=== PATIENT | male | born 1975 | race Caucasian/White ===

== ENCOUNTER 2016-12-07 18:45 | Outpatient (RCR) | payer OTHER ==
--- NOTE | 2016-12-06 16:51 | Diagnostic Imaging Report ---
INDICATION: Nephrolithiasis. EXAMINATION: KUB at 4:22 PM. FINDINGS: The bowel gas pattern is normal. There are no pathologic masses or calcifications seen. IMPRESSION: Negative abdomen. Dictated by: Dictated on workstation # [id number]
[~2016-12-07 18:45] MED LIST: ACHD5005 PO; CIPR250S2 PO; CPR500T PO; OXYC-12 PO; PHEN200T27 PO
[2016-12-11 22:35] LABS: STONE RISK AMMONIUM 34 mEq/24hr (14-62); STONE RISK CA OXALATE 1.51 (< 2.00); STONE RISK CALCIUM 233 mg/day (< 250); STONE RISK CITRATE 467 mg/day (> 320); STONE RISK CREATININE 2052 mg/day (800-2000); STONE RISK MAGNESIUM 160 mg/day (> 60); STONE RISK OXALATE 41 mg/day (< 45); STONE RISK PATIENT CONDITION High urinary sodium; STONE RISK PH 6.4 (5.5-7.0); STONE RISK PHOSPHOROUS 1346 mg/day (< 1100); STONE RISK POTASSIUM 76 mEq/24hr (19-135); STONE RISK SODIUM 235 mEq/24hr (< 200); STONE RISK STRUVITE 2.69 (< 75.00); STONE RISK SULFITE 21 mmol/day (< 30); STONE RISK TOTAL VOLUME 2.14 L/day (> 2.00); STONE RISK URIC ACID 681 mg/day (< 700); STONE RISK URIC ACID SAT 0.59 (< 2.00)
== END 2016-12-08 22:30 | disposition home or self-care (01) ==
LOC: RAD 18:45 → EDSTATUS 12-08 22:29 → RAD 12-08 22:30
PROVIDERS: ATTEND Urology
DX: N20.9 Urinary calculus, unspecified (principal)
CPT/HCPCS: 36415; 74000; 82140; 82340; 82507; 82570; 83735; 83945; 83986; 84105; 84133; 84300; 84392; 84560

== ENCOUNTER 2018-12-17 13:46 | Outpatient (CLI) | payer OTHER ==
[~2018-12-17] VITALS: Ht 177.8 cm; Wt 74.8 kg
[~2018-12-17 13:46] MED LIST changes: -HYDR-3870 PO; -PHEN-640 PO; -SULF1TAB35 PO; -TAMS0.4C98 PO; -TRIA1CAP4 PO
[2018-12-17] MEDS ORDERED: TRIA1CAP4 PO (14:15)
[2018-12-18] MEDS ORDERED: SULF1TAB35 PO (11:18)
[2018-12-18] MEDS ORDERED: PHEN-640 PO (11:18)
[2018-12-18] MEDS ORDERED: HYDR-3870 PO (11:18)
[2018-12-18] MEDS ORDERED: TAMS0.4C98 PO (11:18)
== END 2018-12-17 14:19 | disposition home or self-care (01) ==
LOC: PREOP 13:46
PROVIDERS: ATTEND Urology
DX: Z01.818 Encounter for other preprocedural examination (principal)

== ENCOUNTER → 2018-12-17 | Outpatient (CLI) | payer OTHER ==
[~2018-12-17] MED LIST changes: +HYDR-3870 PO; +PHEN-640 PO; +SULF1TAB35 PO; +TAMS0.4C98 PO; +TRIA1CAP4 PO
--- NOTE | 2018-12-17 10:02 | Diagnostic Imaging Report ---
PROCEDURE: CT urinary tract, rule out kidney stone. TECHNIQUE: Multiple contiguous axial images were obtained through the abdomen and pelvis without the use of intravenous contrast. Auto Exposure Controls were utilized during the CT exam to meet ALARA standards for radiation dose reduction. INDICATION: Left flank pain. COMPARISON: CT abdomen and pelvis of 02/20/2014 FINDINGS: Evaluation of the abdominal viscera is mildly limited without contrast. Lower chest: The lung bases are clear. No pericardial or pleural effusion. Peritoneum: No free intraperitoneal air or fluid. Liver and biliary system: Unenhanced liver is normal. The gallbladder is normal. No biliary duct dilation. Spleen and Pancreas: Spleen is normal. Unenhanced pancreas is grossly normal. Adrenals: Normal. tract: Multiple bilateral nonobstructing renal stones range in size from 2-4 mm. A 4 mm distal left ureteral stone at the UVJ results in mild left hydronephrosis and hydroureter. Urinary bladder is normally filled without wall thickening. Prostate is normal in appearance. GI tract: Stomach is decompressed. No bowel obstruction. No pericolonic inflammatory changes. Appendix is not visualized and could be surgically absent. If the appendix is present, there are no features of acute appendicitis. Vasculature and Lymph nodes: Normal caliber aorta. No abdominal or pelvic lymphadenopathy. Musculoskeletal: No concerning osseous lesion. Transitional vertebrae at the lumbosacral junction. IMPRESSION: 1. A 4 mm stone at the left UVJ results in mild left hydronephrosis and hydroureter. 2. Additional bilateral nonobstructing renal stones range in size from 2-4 mm. Dictated by: Dictated on workstation # [id number]
== END ==
LOC: RAD 09:00
PROVIDERS: ATTEND Urology
DX: N13.2 Hydronephrosis with renal and ureteral calculous obstruction (principal)
CPT/HCPCS: 74176

== ENCOUNTER 2018-12-18 07:21 | Day surgery (SDC) | payer OTHER ==
[~2018-12-18] VITALS: Ht 177.8 cm; Wt 69.9 kg
--- NOTE | 2018-12-18 07:12 | Progress Note-Pre Operative ---
Pre-Operative Progress Note H&P Reviewed The H&P was reviewed, patient examined and no changes noted. Date Seen by Provider: Dec 18, 2018 Time Seen by Provider: 07:11 Date H&P Reviewed: Dec 18, 2018 Time H&P Reviewed: 07:11 Pre-Operative Diagnosis: LT DISTAL URETERAL STONE HAILEY FERRARA MD Dec 18, 2018 07:12
[~2018-12-18 07:21] MED LIST changes: +FAMOTIDINE 20MG/2ML IV (PEPCID) IV ONE; +MIDAZOLAM 2 MG/2 ML (VERSED) VIAL IV ONE; +TRIA1CAP4 PO
--- OUTSIDE RECORDS SUMMARY | 2018-12-18 07:24 | XMS REPORT | Continuity of Care Document ---
Author Author [facility] Organization [facility] Address Unknown Phone Unavailable Allergies Active Description Code Type Severity Reaction Onset Reported/Identified Relationship to Patient Clinical Status Yes No Known Drug Allergies [id number] Drug Allergy Unknown N/A 03/19/2013 Medications There is no data. Problems Date Dx Coded Attending Type Code Diagnosis Diagnosed By 03/19/2013 SANTIAGO JOSEPH MD Ot 592.0 03/19/2013 SANTIAGO JOSEPH MD Ot 789.00 02/21/2014 RADHA VALDERRAMA, MANUEL Aguilar Ot 592.1 02/24/2014 JOSIAS VALDERRAMA, HAILEY A Ot 592.0 02/24/2014 JOSIAS VALDERRAMA, HAILEY A Ot 592.1 06/10/2014 JOSIAS VALDERRAMA, HAILEY A Ot 592.9 12/16/2014 JOSIAS VALDERRAMA, HAILEY A Ot 592.0 12/16/2014 JOSIAS VALDERRAMA, HAILEY A Ot 592.1 12/16/2014 JOSIAS VALDERRAMA, HAILEY A Ot 789.00 12/16/2014 JOSIAS VALDERRAMA, HAILEY A Ot 789.09 12/16/2014 JOSIAS VALDERRAMA, HAILEY A Ot V13.01 12/16/2014 JOSIAS VALDERRAMA, HAILEY A Ot 592.0 12/16/2014 JOSIAS VALDERRAMA, HAILEY A Ot 592.1 12/16/2014 Ot 592.9 12/16/2014 JOSIAS VALDERRAMA, HAILEY A Ot V25.8 12/16/2014 JOSIAS VALDERRAMA, HAILEY A Ot Z30.8 01/15/2015 JOSIAS VALDERRAMA, HAILEY A Ot 592.9 01/20/2015 JOSIAS VALDERRAMA, HAILEY A Ot 592.9 04/14/2015 JOSIAS VALDERRAMA, HAILEY A Ot 592.9 12/07/2016 JOSIAS VALDERRAMA, HAILEY A Ot N20.9 URINARY CALCULUS, UNSPECIFIED 12/08/2016 JOSIAS VALDERRAMA, HAILEY Aguilar Ot N20.9 URINARY CALCULUS, UNSPECIFIED 12/08/2016 JOSIAS VALDERRAMA, HAILEY A Ot N20.9 URINARY CALCULUS, UNSPECIFIED 12/27/2017 JOSIAS VALDERRAMA, HAILEY A Ot N20.0 CALCULUS OF KIDNEY 01/16/2018 JOSIAS VALDERRAMA, HAILEY A Ot N20.0 CALCULUS OF KIDNEY 03/13/2018 JOSIAS VALDERRAMA, HAILEY A Ot N20.0 CALCULUS OF KIDNEY 03/14/2018 JOSIAS VALDERRAMA, HAILEY A Ot N20.0 CALCULUS OF KIDNEY 03/15/2018 JOSIAS VALDERRAMA, HAILEY A Ot N20.0 CALCULUS OF KIDNEY 08/16/2229 JOSIAS VALDERRAMA, HAILEY Aguilar Ot N20.9 URINARY CALCULUS, UNSPECIFIED Procedures There is no data. Results Test Result Range CD3+CD4+ (T4 helper) cells/100 cells in blood - 12/07/16 18:45 Timed urine calcium measurement (mass/volume) 233 % < 250 Urine oxalate detection 41 < 45 Urine uric acid measurement (mass/volume) 681 % < 700 Urine citrate measurement (mass/volume) 467 % > 320 Urine pH measurement 6.4 5.5-7.0 24 hour urine specimen volume measurement 2.14 % > 2.00 Sodium urate/total calculus mass ratio by infrared spectroscopy 235 % < 200 Sulfites [presence] in urine by test strip 21 < 30 Urine phosphate measurement (mass/volume) 1346 % < 1100 Urine magnesium measurement (mass/volume) 160 % > 60 Urine calcium oxalate measurement 1.51 < 2.00 Urine calcium phosphate crystals detection by computer assisted method 2.70 < 2.00 24 hour urine sodium urate (saturation fraction) 2.70 < 2.00 Triple phosphate crystals detection in urine sediment by light microscopy 2.69 < 75.00 24 hour urine uric acid (saturation fraction) 0.59 < 2.00 Urine ammonium measurement 34 % 14-62 Urine potassium measurement 76 % 19-135 24 hour urine creatinine measurement (mass/time) 2052 % 800-2000 Clinical analysis specialist review of results See Below NRG CD3+CD4+ (T4 helper) cells/100 cells in blood - 12/14/17 20:14 Timed urine calcium measurement (mass/volume) 83 % < 250 Urine oxalate detection 41 < 45 Urine uric acid measurement (mass/volume) 626 % < 700 Urine citrate measurement (mass/volume) 329 % > 320 Urine pH measurement 6.0 5.5-7.0 24 hour urine specimen volume measurement 2.02 % > 2.00 Sodium urate/total calculus mass ratio by infrared spectroscopy 107 % < 200 Sulfites [presence] in urine by test strip 15 < 30 Urine phosphate measurement (mass/volume) 1446 % < 1100 Urine magnesium measurement (mass/volume) 102 % > 60 Urine calcium oxalate measurement 0.86 < 2.00 Urine calcium phosphate crystals detection by computer assisted method 0.69 < 2.00 24 hour urine sodium urate (saturation fraction) 1.17 < 2.00 Triple phosphate crystals detection in urine sediment by light microscopy 0.47 < 75.00 24 hour urine uric acid (saturation fraction) 1.29 < 2.00 Urine ammonium measurement 30 % 14-62 Urine potassium measurement 66 % 19-135 24 hour urine creatinine measurement (mass/time) 1913 % 800-2000 Clinical analysis specialist review of results See Below NRG Encounters ACCT No. Visit Date/Time Discharge Status Pt. Type Provider Facility Loc./Unit Complaint [id number] 12/17/2018 13:46:00 12/17/2018 14:19:00 DIS Outpatient HAILEY FERRARA MD [facility] PREOP LEFT URETERAL STONE [id number] 03/14/2018 00:11:00 03/14/2018 23:59:59 CLS Preadmit HAILEY FERRARA MD [facility] RAD H/O STONES [id number] 12/13/2017 15:54:00 03/13/2018 00:01:00 DIS Outpatient HAILEY FERRARA MD [facility] RAD H/O STONES [id number] 12/07/2016 18:45:00 12/08/2016 22:30:00 DIS Outpatient HAILEY FERRARA MD [facility] RAD STONES [id number] 04/15/2015 00:10:00 04/15/2015 23:59:59 CLS Preadmit HAILEY FERRARA MD [facility] RAD [id number] 01/15/2015 10:18:00 04/14/2015 00:01:00 DIS Outpatient HAILEY FERRARA MD [facility] RAD [id number] 12/16/2014 12:03:00 12/16/2014 13:00:00 DIS Outpatient HAILEY FERRARA MD [facility] LAB [id number] 03/14/2014 08:38:00 06/10/2014 00:01:00 DIS Outpatient HAILEY FERRARA MD [facility] LAB [id number] 03/09/2014 11:24:00 03/09/2014 23:59:59 CLS Outpatient HAILEY FERRARA MD [facility] RAD [id number] 02/24/2014 08:34:00 02/24/2014 14:45:00 DIS Outpatient HAILEY FERRARA MD [facility] [id number] 02/21/2014 00:55:00 02/21/2014 02:13:00 DIS Emergency MANUEL GARCIA MD [facility] ER [id number] 02/20/2014 13:09:00 02/20/2014 23:59:59 CLS Outpatient HAILEY FERRARA MD [facility] RAD [id number] 02/19/2014 13:32:00 02/19/2014 23:59:59 CLS Outpatient HAILEY FERRARA MD [facility] RAD [id number] 03/19/2013 04:46:00 03/19/2013 06:01:00 DIS Emergency SANTIAGO JOSEPH MD [facility] ER [id number] 12/17/2018 14:12:00 Document Registration [id number] 12/17/2018 09:00:00 ACT Outpatient HAILEY FERRARA MD [facility] RAD LT FLANK PAIN, GROSS HEMATURIA [id number] 12/16/2014 09:30:00 Document Registration [id number] 01/16/2015 03:59:59 ACT Document Registration
[2018-12-18 07:25] VITALS: BP 119/86
[2018-12-18] MEDS: LACTATED RINGERS 1,000 ML IV PRN ×2 (07:40→09:20)
[2018-12-18] MEDS ORDERED: cefTRIAXone FOR IV USE 1,000 MG in WATER (STERILE) FOR INJECTION 10 ML IV ONE (07:45)
[2018-12-18] MEDS ORDERED: MIDAZOLAM 2 MG/2 ML (VERSED) VIAL IV ONE (08:00)
[2018-12-18] MEDS ORDERED: fentaNYL INJECTION 100 MCG/2 ML AMP ONE ×2 (08:08→08:32)
--- NOTE | 2018-12-18 08:08 | Diagnostic Imaging Report ---
INDICATION: Preop left ureteral stone. COMPARISON: 12/13/2018. FINDINGS: There is a 3 mm calculus in the pelvis left of midline likely in the distal left ureter. No other calculi are seen. IMPRESSION: Findings are consistent with distal left ureteral calculus. This does correlate with CT scan of 12/17/2018. Dictated by: Dictated on workstation # [id number]
[2018-12-18] MEDS ORDERED: fentaNYL INJECTION 100 MCG/2 ML AMP IVP ONE ×2 (08:15→10:15)
[2018-12-18] MEDS ORDERED: LIDOCAINE PF 2% 5 ML (XYLOCAINE) VIAL ONE (08:32)
[2018-12-18] MEDS ORDERED: NEOSTIGMINE 1 MG/ML 5 ML SYRINGE ONE (08:32)
[2018-12-18] MEDS ORDERED: SEVOFLURANE (ULTANE) 15 ML INHAL SOLN ONE (08:32)
[2018-12-18] MEDS ORDERED: DEXAMETHASONE 10 MG/ML (DECADRON) 1 ML VIAL ONE (08:32)
[2018-12-18] MEDS ORDERED: proPOfol 200 MG/20 ML (DIPRIVAN) VIAL IV ONE (08:32)
[2018-12-18] MEDS ORDERED: MIDAZOLAM 2 MG/2 ML (VERSED) VIAL ONE (08:32)
[2018-12-18] MEDS ORDERED: ONDANSETRON 4 MG/2 ML (SDV) Z0FRAN ONE (08:32)
[2018-12-18] MEDS ORDERED: GLYCOPYRROLATE 0.2 MG/ML (ROBINUL) 2 ML VIAL ONE (08:32)
[2018-12-18] MEDS ORDERED: ROCURONIUM 10 MG/ML 5 ML SYRINGE IV ONE (08:34)
[2018-12-18] MEDS ORDERED: FUROSEMIDE 40 MG/4 ML INJ (LASIX) ONE (09:30)
[2018-12-18] MEDS ORDERED: KETOROLAC 30 MG/ML VIAL ONE (09:30)
--- NOTE | 2018-12-18 09:35 | Progress Note-Post Operative ---
Post-Operative Progess Note Surgeon (s)/Christian Counselor (s) Surgeon HAILEY FERRARA MD Christian Counselor: NONE Pre-Operative Diagnosis LT DISTAL URETERAL STONE Post-Operative Diagnosis SAME Procedure & Operative Findings Date of Procedure 12/18/18 Procedure Performed/Findings LT URETEROSCOPY WITH STONE LITHOTRIPSY Anesthesia Type GENERAL Estimated Blood Loss Estimated blood loss (mL): NONE Specimens/Packing Specimens Removed NONE Packing: NONE HAILEY FERRARA MD Dec 18, 2018 09:35
--- NOTE | 2018-12-18 09:42 | Discharge Inst-Urology ---
Discharge Inst-Urology Discharge Medications New, Converted, or Re-newed RX: RX on Chart Patient Instructions/Follow Up Plan Please make appointment to been seen in office in [address] home Increase oral fluids for 48 hours and then as needed. Diet and Activity as tolerated. If questions or concerns contact your physician Or seek help at emergency department. HAILEY FERRARA MD Dec 18, 2018 09:42
[2018-12-18] MEDS ORDERED: morphine INJ 10 MG/ML 1ML (SYR OR VIAL) IVP ONE (10:15)
[2018-12-18] MEDS ORDERED: ONDANSETRON 4 MG/2 ML (SDV) Z0FRAN IVP PRN (10:15)
--- NOTE | 2018-12-18 10:19 | Anesthesia-General Post-Op ---
General Patient Condition Mental Status/LOC: Same as Preop Cardiovascular: Satisfactory Nausea/Vomiting: Absent Respiratory: Satisfactory Pain: Controlled Complications: Absent Post Op Complications Complications None Follow Up Care/Instructions Patient Instructions None needed. Anesthesia/Patient Condition Patient Condition Patient is doing well, no complaints, stable vital signs, no apparent adverse anesthesia problems. No complications reported per nursing. MEGHANA GERARD CRNA Dec 18, 2018 10:19
[2018-12-18 11:00] VITALS: BP 112/75
[2018-12-18] MEDS ORDERED: TAMS0.4C98 PO (11:18)
[2018-12-18] MEDS ORDERED: HYDR-3870 PO (11:18)
[2018-12-18] MEDS ORDERED: SULF1TAB35 PO (11:18)
[2018-12-18] MEDS ORDERED: PHEN-640 PO (11:18)
[2018-12-18 11:30] VITALS: BP 118/84
[2018-12-18 12:00] VITALS: BP 109/71
--- NOTE | 2018-12-18 13:15 | Diagnostic Imaging Report ---
INDICATION: Postop left side lithotripsy. TIME OF EXAM: 01:07 p.m. Correlation is made with prior study earlier the same day. Single view of the abdomen was obtained. The previously noted calcification in the left pelvis is not well seen on this current exam. No definite radiopaque urinary tract calculi are seen. IMPRESSION: No definite radiopaque urinary tract calculi. Dictated by: Dictated on workstation # [id number]
[2018-12-18 13:20] VITALS: BP 109/71
--- NOTE | 2018-12-18 14:09 | OPERATIVE REPORT ---
DATE OF SERVICE: 12/18/2018 PREOPERATIVE DIAGNOSIS: Left distal ureteral stone. POSTOPERATIVE DIAGNOSIS: Left distal ureteral stone. OPERATION PERFORMED: Cystoscopy and left ureteroscopy with stone lithotripsy. SURGEON: Jimmy Ferrara MD ANESTHESIA: General. COMPLICATIONS: None. DESCRIPTION OF PROCEDURE: Under satisfactory general anesthesia, the patient in lithotomy position, genitalia were prepped and draped in usual sterile fashion. Cystoscope was introduced under vision. The anterior urethra was normal. The prostate was nonobstructing. The bladder neck was open. Bladder was essentially normal except that there was a stone protruding through the left UV junction. I attempted to grab it with a grasping forceps; however, I could not, but I was able to disimpact it to allow me to get a 6.9 Chinese semi-rigid ureteroscope. After removing the cystoscope, visualized the stone. It was very hard one and floating, but I was able to break it up with lithoclast chased it until it was all small fragments and most of it flowing into the bladder. We went above the stone to make sure there were no more fragments or stones. I inspected the no problem, no need for a stent. I removed the ureteroscope, reinserted the cystoscope to empty the bladder. The patient tolerated the procedure and anesthesia well and was sent to recovery room in stable condition. Job ID: [id number] DocumentID: [id number] Dictated Date: 12/18/2018 09:37:20 Transition Nurse Date: 12/18/2018 14:08:14 Dictated By: JIMMY FERRARA MD
== END 2018-12-18 13:20 | disposition home or self-care (01) ==
LOC: SDC 07:21
PROVIDERS: ATTEND Urology
DX: N20.1 Calculus of ureter (principal); Z11.2 Encounter for screening for other bacterial diseases; I10 Essential (primary) hypertension; Z79.899 Other long term (current) drug therapy
CPT/HCPCS: 74018; 87081

== ENCOUNTER → 2018-12-31 | Outpatient (CLI) | payer OTHER ==
[~2018-12-31] MED LIST changes: -FAMOTIDINE 20MG/2ML IV (PEPCID) IV ONE; +HYDR-3870 PO; -MIDAZOLAM 2 MG/2 ML (VERSED) VIAL IV ONE; +PHEN-640 PO; +SULF1TAB35 PO; +TAMS0.4C98 PO
--- NOTE | 2018-12-31 16:31 | Diagnostic Imaging Report ---
INDICATION: Left ureteral stone. TECHNIQUE: Two supine views of the abdomen at 12:17 p.m. CORRELATION STUDY: 12/18/2018. FINDINGS: Large amount of gas and stool is present. A previously identified distal left ureter stone cannot be well visualized on this study with stool in this area. A few punctate calcifications are superimposed over left kidney. Right kidney is largely obscured by asymmetric stool burden. Osseous structures are unremarkable. IMPRESSION: 1. Presence of nonobstructing left renal stones. The known distal left ureteral stone is likely largely obscured by overlying bowel gas and stool. Dictated by: Dictated on workstation # [id number]
== END ==
LOC: RAD 12:06
PROVIDERS: ATTEND Urology
DX: N20.2 Calculus of kidney with calculus of ureter (principal)
CPT/HCPCS: 74018

== ENCOUNTER 2019-07-15 14:30 | Outpatient (RCR) | payer OTHER ==
[~2019-07-15 14:30] MED LIST changes: -TAMS0.4C98 PO; +TMSL.4C PO
--- NOTE | 2019-07-15 16:00 | Diagnostic Imaging Report ---
EXAMINATION: Abdomen, one view. HISTORY: Renal stones. FINDINGS: Comparison is 12/31/2018. A 1 mm calcification projecting over the lower pole of the left kidney is likely unchanged from prior exam. No other calcifications are seen along the kidneys, ureters, or bladder. Bowel gas pattern is normal. IMPRESSION: 1. Stable 1 mm calcification projecting over the lower pole of the left kidney. Dictated by: Dictated on workstation # [id number]
== END 2019-10-13 | disposition home or self-care (01) ==
LOC: RAD 14:30
PROVIDERS: ATTEND Urology
DX: N20.0 Calculus of kidney (principal); N28.89 Other specified disorders of kidney and ureter
CPT/HCPCS: 36415; 74018; 82140; 82340; 82507; 82570; 83735; 83945; 83986; 84105; 84133; 84300; 84392; 84560

== ENCOUNTER 2020-07-15 16:47 | Outpatient (RCR) | payer OTHER ==
--- NOTE | 2020-07-14 15:57 | Diagnostic Imaging Report ---
INDICATION: History of kidney stones. COMPARISON: 07/15/2019 FINDINGS: Single supine radiographic view of the abdomen was obtained and demonstrates nondistended loops of small bowel. There is no large collection of free peritoneal air. [id number] air and stool are seen scattered throughout the colon. No unexpected extraosseous calcifications or radiopaque foreign bodies are seen. Bony structures show no gross acute abnormalities. IMPRESSION: 1. Nonobstructed small bowel gas pattern. Dictated by: Dictated on workstation # [id number]
== END 2020-10-12 | disposition home or self-care (01) ==
LOC: RAD 16:47
PROVIDERS: ATTEND Urology
DX: N20.0 Calculus of kidney (principal)
CPT/HCPCS: 36415; 74018; 82140; 82340; 82507; 82570; 83735; 83945; 83986; 84105; 84133; 84300; 84392; 84560

== ENCOUNTER 2021-07-16 11:00 | Outpatient (RCR) | payer OTHER ==
--- NOTE | 2021-07-15 12:14 | Diagnostic Imaging Report ---
EXAMINATION: Supine abdomen at 1110 AM INDICATION: Nephrolithiasis There is some gas in both the large and small bowel in a nonspecific fashion. There is no evidence for bowel obstruction. The bowel gas pattern is similar to the prior exam of 07/14/2020. There is no mass or organomegaly appreciated. There are no pathological calcifications identified either. However, the right kidney is partially obscured by bowel gas and fecal material. The osseous structures are intact. IMPRESSION: 1. The bowel gas pattern is nonspecific. There is no acute abnormality identified. 2. There are no pathological calcifications identified although the right kidney was obscured by bowel gas and fecal material. Dictated by: Dictated on workstation # [id number]
[~2021-07-16 11:00] MED LIST changes: -SULF1TAB35 PO; +SULF1TAB38 PO
== END 2021-09-16 | disposition home or self-care (01) ==
LOC: RAD 11:00
PROVIDERS: ATTEND Urology
DX: N20.0 Calculus of kidney (principal)
CPT/HCPCS: 36415; 74018; 82140; 82340; 82507; 82570; 83735; 83945; 83986; 84105; 84133; 84300; 84392; 84560